=== PATIENT | female | born 1990 | race Caucasian/White ===

== ENCOUNTER 2018-05-21 20:24 | Emergency (ER) | payer OTHER ==
[~2018-05-21] VITALS: Ht 160 cm; Wt 110.7 kg
[2018-05-21 22:30] VITALS: BP 148/80; TEMP 98.1
== END 2018-05-21 22:32 | disposition home or self-care (01) ==
LOC: ED 20:24
DX: T63.481A Toxic effect of venom of other arthropod, accidental (unintentional), initial encounter (principal)
CPT/HCPCS: 96372; 99283; J1200; J2930